=== PATIENT | female | born 1970 | race African-American/Black ===

== ENCOUNTER 2018-07-25 05:22 | Inpatient (IN) ==
[2018-07-19 17:50] LABS: Apearance,Urine Slightly Hazy (Clear); Bacteria,Urine Occasional /HPF (Few); Bilirubin,Urine Negative (Negative); Blood, Urine Negative (Negative); Glucose,Urine (UA) Negative (Negative); Ketones,Urine Negative (Negative); Nitrite,Urine Negative (Negative); Protein,Urine Negative; RBC,Urine 1 /HPF (0-4); Squamous Epithelial Cell,Urine Occasional /HPF (0-10); Urine Color Straw (Yellow); Urine Specific Gravity 1.006 (1.001-1.035); Urine Urobilinogen < 2.0 EU/DL (0.2-1.0); WBC,Urine 2 /HPF (0-6)
[2018-07-19 18:04] LABS: Basophils % 0.5 % (0.0-0.8); Eosinophils % 0.5 % (0.00-10.9); Hematocrit 42.8 VOL% (35.7-47.0); Hemoglobin 13.9 GM/DL (12.0-16.0); Immature Granulocytes % 0.2 %; Immature Granulocytes Absolute 0.01 #; Lymphocytes # 2.7 10*3/uL (1.4-4.0); Lymphocytes % 46.9 % (21.3-54.2); Mean Corpuscular HGB Conc 32.5 GM/DL (32-36); Mean Corpuscular Hemoglobin 28 PG (27-34); Mean Corpuscular Volume 84.9 FL (87-102); Mean Platelet Volume 9.6 FL (9.6-12.0); Monocytes # 0.4 10*3/uL (0.11-0.8); Monocytes % 7.7 % (1.7-12.7); Neutrophils # 2.5 10*3/uL (1.4-7.4); Neutrophils % 44.2 % (38.7-73.9); Platelet Count 304 T/CUMM (130-400); Red Blood Count 5.04 MC/CUMM (3.8-5.5); Red Cell Distribution Width 13.2 % (9.3-17.3); White Blood Count 5.7 T/CUMM (4-12)
[2018-07-19 18:30] LABS: Albumin 4.1 G/DL (3.4-5.0); Bilirubin,Total 0.7 MG/DL (0.2-1.0); Calcium 9.1 MG/DL (8.5-10.1); Osmolality,Calculated 273.7 MOS/KG (273-304); Potassium 3.6 MMOL/L (3.5-5.1); Risk Ratio 2.42; Total Protein 8.1 G/DL (6.4-8.3)
[2018-07-19 19:19] LABS: HIV Antigen/Antibody Result Nonreactive (Nonreactive)
[2018-07-25] MEDS ORDERED: AMPICILLIN/SULBACTAM 3,000 MG VIAL ONE (05:54)
[2018-07-25] MEDS ORDERED: AMPICILLIN/SULBACTAM 3,000 MG in SODIUM CHLORIDE 0.9% 100 ML IV ONE (06:00)
[2018-07-25] MEDS ORDERED: LACTATED RINGERS 1,000 ML IV SCH ×2 (06:00→08:30)
[2018-07-25 08:22] LABS: Apearance,Urine CLEAR (Clear); Bilirubin,Urine Negative (Negative); Blood, Urine Negative (Negative); Glucose,Urine (UA) Negative (Negative); Ketones,Urine Negative (Negative); Nitrite,Urine Negative (Negative); Protein,Urine Negative; Urine Color Colorless (Yellow); Urine Specific Gravity 1.004 (1.001-1.035); Urine Urobilinogen < 2.0 EU/DL (0.2-1.0); WBC,Urine <1 /HPF (0-6)
[2018-07-25] MEDS ORDERED: ONDANSETRON 4 MG/2 ML VIAL IV PRN ×2 (08:27→09:07)
[2018-07-25] MEDS ORDERED: DOCUSATE SODIUM 100 MG CAPSULE PO PRN (08:27)
[2018-07-25] MEDS ORDERED: BENZOCAINE/MENTHOL LOZENGE 18/BOX PO PRN (08:27)
[2018-07-25] MEDS ORDERED: BISACODYL 10 MG SUPP RECTAL PRN (08:27)
[2018-07-25] MEDS ORDERED: IBUPROFEN 800 MG TABLET PO PRN (08:27)
[2018-07-25] MEDS ORDERED: MAGNESIUM HYDROXIDE SUSP 30 ML UDCUP PO PRN (08:27)
[2018-07-25] MEDS ORDERED: ACETAMINOPHEN 325 MG TABLET PO PRN (08:27)
[2018-07-25] MEDS ORDERED: NALOXONE 0.4 MG/ML VIAL IV PRN (08:29)
[2018-07-25] MEDS ORDERED: HYDROmorphone PCA 30 MG/30 ML SYRINGE IV SCH (08:30)
[2018-07-25] MEDS ORDERED: MIDAZOLAM 2 MG/2 ML VIAL ONE (08:40)
[2018-07-25] MEDS ORDERED: SEVOFLURANE 1 UNIT/15 MINUTE INH ONE (08:41)
[2018-07-25] MEDS ORDERED: PROPOFOL 200 MG/20 ML VIAL IV ONE (08:41)
[2018-07-25] MEDS ORDERED: ACETAMINOPHEN 1,000 MG/100 ML VIAL IV ONE (08:42)
[2018-07-25] MEDS ORDERED: LACTATED RINGERS 1,000 ML IV ONE (08:42)
[2018-07-25] MEDS ORDERED: SODIUM CHLORIDE 0.9% 100 ML IV ONE (08:42)
[2018-07-25] MEDS ORDERED: ONDANSETRON 4 MG/2 ML VIAL ONE (08:42)
[2018-07-25] MEDS ORDERED: GLYCOPYRROLATE 0.4 MG/2 ML VIAL ONE (08:42)
[2018-07-25] MEDS ORDERED: NEOSTIGMINE 10 MG/10 ML VIAL ONE (08:42)
[2018-07-25] MEDS ORDERED: ROCURONIUM 100 MG/10 ML VIAL IV ONE (08:42)
[2018-07-25] MEDS ORDERED: PHENYLEPHRINE 1 MG/10 ML SYRINGE IV ONE (08:42)
[2018-07-25] MEDS ORDERED: HYDROmorphone PCA 30 MG/30 ML SYRINGE IV ONE (08:50)
[2018-07-25] MEDS: HYDROmorphone 2 MG/1 ML VIAL IV PRN ×4 (09:10→09:28)
[2018-07-25] MEDS ORDERED: ceFAZolin 1,000 MG in SYRINGE 1 EACH IV SCH (14:27)
[2018-07-25] MEDS ORDERED: SODIUM CHLORIDE 0.9% 50 ML IV ONE (15:51)
[2018-07-25] MEDS: ceFAZolin 1,000 MG in SYRINGE 1 EACH IV SCH (15:57)
[2018-07-25] MEDS: diphenhydrAMINE CAP 25 MG CAPSULE PO PRN (22:01)
[2018-07-26] MEDS: ceFAZolin 1,000 MG in SYRINGE 1 EACH IV SCH (00:23)
[2018-07-26] MEDS ORDERED: SIMETHICONE CHEW 80 MG TABLET PO PRN (06:04)
[2018-07-26 06:05] LABS: Basophils % 0.3 % (0.0-0.8); Hematocrit 34.1 VOL% (35.7-47.0); Hemoglobin 11.3 GM/DL (12.0-16.0); Immature Granulocytes % 0.2 %; Immature Granulocytes Absolute 0.02 #; Lymphocytes # 2.1 10*3/uL (1.4-4.0); Lymphocytes % 23.9 % (21.3-54.2); Mean Corpuscular HGB Conc 33.1 GM/DL (32-36); Mean Corpuscular Hemoglobin 28 PG (27-34); Mean Platelet Volume 9.8 FL (9.6-12.0); Monocytes # 0.8 10*3/uL (0.11-0.8); Monocytes % 8.6 % (1.7-12.7); Neutrophils # 5.9 10*3/uL (1.4-7.4); Platelet Count 244 T/CUMM (130-400); Red Blood Count 4.06 MC/CUMM (3.8-5.5); White Blood Count 8.8 T/CUMM (4-12)
[2018-07-26] MEDS: diphenhydrAMINE CAP 25 MG CAPSULE PO PRN (06:36)
[2018-07-26] MEDS: METOCLOPRAMIDE 10 MG/2 ML VIAL IV SCH ×2 (07:59→16:01)
[2018-07-26] MEDS ORDERED: MAGNESIUM CITRATE 300 ML BOTTLE PO ONE (18:17)
[2018-07-26] MEDS: METOCLOPRAMIDE 10 MG TABLET PO SCH (23:27)
[2018-07-27 07:02] VITALS: BP 143/83
[2018-07-27] MEDS: METOCLOPRAMIDE 10 MG TABLET PO SCH (08:13)
== END 2018-07-27 12:20 | disposition home or self-care (01) | DRG 742 ==
LOC: N.SDSINP 05:22 → N.OB 08:02
PROVIDERS: ADMIT Obstetrics & Gynecology; ATTEND Obstetrics & Gynecology